=== PATIENT | female | born 1985 | race Two or more races ===

== ENCOUNTER 2023-08-13 01:49 | Emergency (ER) | payer MEDICAID, OTHER, SELFPAY ==
--- NOTE | ~2023-08-13 | CT_ITS ---
EXAMINATION: CT ABDOMEN AND PELVIS WITHOUT CONTRAST CLINICAL INFORMATION: Left flank pain with history of stone COMPARISON: None available. TECHNIQUE: Multidetector volumetric imaging was performed from the superior aspect of the liver through the pubic symphysis. Sagittal and coronal reformatted images were obtained on the technologist's workstation. This CT examination was performed using dose optimization techniques as appropriate, variously including the following: *Automated exposure control *Adjustment of mA and/or kV according to patient size (this includes techniques or standardized protocols for targeted exams where dose is matched to indication/reason for exam; i.e. extremities or head) *Use of iterative reconstruction technique DLP: 705 mGy-cm FINDINGS: LUNG BASES: The visualized lung bases are unremarkable. LIVER, GALLBLADDER, AND BILIARY TREE: The liver is normal in size, shape, and attenuation. No focal hepatic lesion or biliary ductal dilatation is identified on this noncontrast exam. Gallbladder appears contracted. PANCREAS: Unremarkable. SPLEEN: Unremarkable. ADRENAL GLANDS: Unremarkable. KIDNEYS AND URETERS: No hydronephrosis or obstructing calculus bilaterally. Mild stranding is noted adjacent to the mid left ureter. BLADDER: Unremarkable. GASTROINTESTINAL TRACT: Suture line is present along the stomach. No evidence of bowel obstruction or significant wall thickening. The appendix is unremarkable. No free fluid or free air is seen. ABDOMINAL WALL: No significant hernia is appreciated. LYMPH NODES: Normal. VASCULAR: Unremarkable. PELVIC VISCERA: Unremarkable. OSSEOUS STRUCTURES: Unremarkable. CT/CT abdomen pelvis wo IV con IMPRESSION: No hydronephrosis or obstructing calculus identified. Mild stranding adjacent to the mid left ureter, which could reflect sequelae of a recently passed stone versus ascending urinary tract infection.
[2023-08-13 01:54] VITALS: BP 115/77; PULSE 61; RESP 18; TEMP 36.8; O2SAT 97; BMI 36.2
[2023-08-13 02:22] LABS: MANUAL DIFF FLAG NO
[2023-08-13 02:24] LABS: Basophils Percent Auto 0.2 % (0-2); Eosinophils Absolute Auto 0.1 X10*3/uL (0.0-0.4); Eosinophils Percent Auto 1.3 % (0-4); Hematocrit 41.1 % (37.0-47.0); Hemoglobin 13.6 g/dl (12.0-16.0); Imm Gran Abs Auto 0.02 X10*3/uL (0.00-0.03); Imm Gran Pct Auto 0.2 % (0.0-0.4); Lymphocytes Absolute Auto 2.3 X10*3/uL (1.2-4.9); Lymphocytes Percent Auto 25.3 % (20-40); Mean Corpuscular HGB Conc 33.1 g/dl (31.0-35.0); Mean Corpuscular Hemoglobin 28.8 pg (27.0-33.0); Mean Corpuscular Volume 87.1 fL (80.0-98.0); Mean Platelet Volume 9.7 fL (9.4-12.3); Monocytes Absolute Auto 0.6 X10*3/uL (0.1-1.2); Neutrophils Absolute Auto 5.9 x10*3/uL (2.0-8.3); Platelet Count 223 X10*3/uL (160-400); Red Blood Count 4.72 X10*6/uL (4.20-5.50); Red Cell Distribution Width 14.2 % (11.0-16.0); White Blood Count 8.9 X10*3/uL (4.8-10.8)
[2023-08-13 02:40] LABS: Alanine Aminotransferase 13 U/L (0-31); Albumin Level 4.3 g/dL (3.5-5.0); Alkaline Phosphatase 81 U/L (39-117); Anion Gap 16 (12-20); Aspartate Amino Transferase 17 U/L (5-31); Bilirubin Total 0.1 mg/dL (0.0-1.0); Blood Urea Nitrogen 8 mg/dL (9-16); Calcium 9.4 mg/dL (8.4-10.2); Carbon Dioxide 20 mmol/L (22-29); Chloride 110 mmol/L (96-108); Creatinine Clr Calc Pharmacy 103.4; Estimated Glomerular Filt Rate > 60; Glucose Random 94 mg/dL (60-115); Potassium 3.6 mmol/L (3.3-5.1); Sodium 142 mmol/L (135-145)
[2023-08-13 02:42] LABS: Appearance Urine Cloudy; Color Urine Yellow; Glucose Urine UA Negative (Negative); Leukocyte Esterase Urine Large (3+) (Negative); Nitrite Urine Negative (Negative); Specific Gravity - Urine <= 1.005 (1.005-1.025); UMIC TRIGGER UACC YES; Urine Blood Moderate (2+) (Negative); Urine Ketones Negative (Negative); Urine Protein Trace mg/dL (Neg-Trace)
[2023-08-13 02:44] LABS: UPreg QC Valid YES; Urine Pregnancy NEGATIVE (NEGATIVE)
--- NOTE | 2023-08-13 03:19 | ED.ABDPAIN ---
HPI - Abdominal Pain General Chief Complaint: Abdominal Pain Stated Complaint: Abdominal/Back Pain Time Seen by Provider: 08/13/23 03:18 Source: patient Mode of arrival: ambulatory Limitations: no limitations History of Present Illness HPI narrative: Patient with history of kidney stone complaining of pain left flank radiating to left lower abdomen for last 24 hours with slight nausea no hematuria also complaining of lower abdominal pain for last few days denies any frequency hematuria Related Data Previous Rx's Medication Instructions Recorded cefuroxime axetil 250 mg tablet 250 mg PO BID 7 days #14 tabs 08/13/23 tramadol 50 mg tablet 50 mg PO Q6H PRN pain #20 tabs 08/13/23 Allergies Allergy/AdvReac Type Severity Reaction Status Date / Time No Known Allergies Allergy Verified 08/13/23 02:01 Review of Systems Review of Systems Yes all other systems are reviewed and are negative [facility] Past Medical History Medical History Kidney stone Social History Social History Smoked in Last 30 Days: No Use of substances other than those prescribed or required for medical reasons: No Advance Directives: No Advance Directives Information Provided: Yes Physical Exam ED Vital Signs: Vital Signs - 24 hr 08/13/23 01:54 08/13/23 03:52 08/13/23 04:25 Temperature 98.2 F 97.8 F Pulse Rate 61 79 Respiratory Rate 18 16 12 Blood Pressure 115/77 117/67 Pulse Oximetry 97 95 Oxygen Delivery Method Room Air Room Air BMI result Body Mass Index 36.2 Appearance: Alert. Oriented X3. In mild distress Eyes: PERRLA, No Nystagmus ENT: Pharynx normal. Oral Mucosa moist Neck: Normal inspection. Neck supple. CVS: Normal heart rate and rhythm. Pulses normal. Respiratory: No respiratory distress. Equal air entry bilateral, no wheezing/rales/rhonchi Abdomen: Soft , diffuse tenderness suprapubic and left lower quadrant. Bowel sounds are present, no mass palpable,L CVA tenderness Skin: Skin warm and dry. Normal skin color. Normal skin turgor. Extremities: No lower extremity edema. No calf tenderness Neuro: Oriented X 3. No motor deficit. 2067 Medical Decision Making Differential Diagnosis Differential Diagnoses: The differential diagnosis associated with the presentation includes UTI/renal colic/musculoskeletal pain Lab Data MDM Lab Attestation statement: I reviewed the patient's lab results. 08/13/23 02:06 08/13/23 02:06 Labs: Lab Results 08/13/23 Range/Units 02:06 WBC 8.9 (4.8-10.8) X10*3/uL RBC 4.72 (4.20-5.50) X10*6/uL Hgb 13.6 (12.0-16.0) g/dl Hct 41.1 (37.0-47.0) % MCV 87.1 (80.0-98.0) fL MCH 28.8 (27.0-33.0) pg MCHC 33.1 (31.0-35.0) g/dl RDW 14.2 (11.0-16.0) % Plt Count 223 (160-400) X10*3/uL MPV 9.7 (9.4-12.3) fL Immature Gran % (Auto) 0.2 (0.0-0.4) % Neut % (Auto) 66.0 (45-73) % Lymph % (Auto) 25.3 (20-40) % [place] % (Auto) 7.0 (2-11) % Eos % (Auto) 1.3 (0-4) % Baso % (Auto) 0.2 (0-2) % Lymph # (Auto) 2.3 (1.2-4.9) X10*3/uL [place] # (Auto) 0.6 (0.1-1.2) X10*3/uL Eos # (Auto) 0.1 (0.0-0.4) X10*3/uL Baso # (Auto) 0.0 (0.0-0.2) X10*3/uL Abs Immat Gran (auto) 0.02 (0.00-0.03) X10*3/uL Absolute Neuts (auto) 5.9 (2.0-8.3) x10*3/uL Absolute Nucleated RBC 0.000 (0.0-0.012) X10*3/uL Nucleated RBC % (auto) 0.0 (0.0-0.2) /100WBC Sodium 142 (135-145) mmol/L Potassium 3.6 (3.3-5.1) mmol/L Chloride 110 H (96-108) mmol/L Carbon Dioxide 20 L (22-29) mmol/L Anion Gap 16 (12-20) BUN 8 L (9-16) mg/dL Creatinine 0.82 (0.5-1.4) mg/dL Estim Creat Clear Calc 103.4 Estimated GFR > 60 Random Glucose 94 (60-115) mg/dL Calcium 9.4 (8.4-10.2) mg/dL Total Bilirubin 0.1 (0.0-1.0) mg/dL AST 17 (5-31) U/L ALT 13 (0-31) U/L Alkaline Phosphatase 81 (39-117) U/L Total Protein 8.0 (6.5-8.0) g/dL Albumin 4.3 (3.5-5.0) g/dL Urine Color Yellow Urine Appearance Cloudy Urine pH 6.0 (5.0-9.0) Ur Specific [place] <= 1.005 (1.005-1.025) Urine Protein Trace (Neg-Trace) mg/dL Urine Glucose (UA) Negative (Negative) mg/dL Urine Ketones Negative (Negative) mg/dL Urine Blood Moderate (2+) H (Negative) Urine Nitrite Negative (Negative) Ur Leukocyte Esterase Large (3+) H (Negative) Urine RBC 0-2 (0-2) /HPF Urine WBC >50 H (0-5) /HPF Ur Squamous Epith Cells 0-2 (0-2) /HPF Urine Bacteria 1+ (None Seen) Hyaline Casts 0-2 (0-2) /LPF Urine Test NEGATIVE (NEGATIVE) Radiology Impression Discussion of test interpretation with radiology: I have reviewed the radiologist's reading. Medications Administered Discontinued Medications Generic Name Dose Route Start Last Admin Trade Name Freq PRN Reason Stop Dose Admin Cefuroxime Axetil 500 mg 08/13/23 06:03 08/13/23 06:31 Cefuroxime Axetil 500 Mg Tablet PO 08/13/23 06:04 500 mg ONCE ONE Administration Sodium Chloride 1,000 mls @ 999 mls/hr 08/13/23 03:35 08/13/23 05:25 Ns IV 08/13/23 04:35 Infused .Q1H1M ONE Infusion Ketorolac Tromethamine 30 mg 08/13/23 03:35 08/13/23 04:22 Ketorolac Tromethamine 30 Mg/Ml Vial IVPUSH 08/13/23 03:36 30 mg ONCE ONE Administration Discharge Plan Discharge Clinical Impression: Renal calculi, UTI (urinary tract infection) Patient Disposition: Home, Self-Care Instructions: Kidney Stones (ED), Urinary Tract Infection in Women (ED) Additional Instructions: Drink plenty of fluids Likely you have passed a kidney stone, also urine showing some infection Take antibiotic as prescribed Pain meds as prescribed Follow-up with your PCP as needed Beber mucho l?quido Probablemente hayas expulsado un c?lculo renal, tambi?n la orina muestra alguna infecci?n. [place] el antibi?mackenzie seg?n lo prescrito Medicamentos para el dolor seg?n lo prescrito Rusty un seguimiento con jamison PCP seg?n sea necesario Prescriptions: New cefuroxime axetil 250 mg tablet 250 mg PO BID 7 Days Qty: 14 0RF tramadol 50 mg tablet 50 mg PO Q6H PRN (Reason: pain) Qty: 20 0RF Print Language: Chinese
[2023-08-13 03:48] LABS: Bacteria Urine 1+ (None Seen); Hyaline Casts Urine 0-2 /LPF (0-2); RBC Urine 0-2 /HPF (0-2); Squamous Epithelial Cell Urine 0-2 /HPF (0-2); UACC Culture Trigger YES; WBC Urine >50 /HPF (0-5)
[2023-08-13 03:52] VITALS: BP 117/67; PULSE 79; RESP 16; TEMP 36.6; O2SAT 95
[2023-08-13] MEDS: Ketorolac Tromethamine 30 MG/ML VIAL IVPUSH (04:22)
[2023-08-13] MEDS: 0.9 % Sodium Chloride 1,000 ML 999 ML IV (04:24)
[2023-08-13 04:25] VITALS: RESP 12
--- NOTE | 2023-08-13 04:29 | PC.NURSE ---
Pt ca&ox4, no signs of distress. Pts spouse at bedside Pt reporting 10/10 left flank pain and abdm pain Pt medicated per mar. Plan of care ongoing.
== END 2023-08-13 07:08 | disposition home or self-care (01) ==
PROVIDERS: Emergency Provider Internal Medicine
DX: N20.0 Calculus of kidney (principal); N39.0 Urinary tract infection, site not specified; B96.20 Unspecified Escherichia coli [E. coli] as the cause of diseases classified elsewhere; R10.9 Unspecified abdominal pain
CPT/HCPCS: 36415; 74176; 80053; 81001; 81025; 85025; 87086; 87088; 87186; 96361; 96374; 99284; 99285; J1885

== ENCOUNTER 2024-07-17 10:09 | Emergency (ER) | payer MEDICAID, OTHER, SELFPAY ==
--- NOTE | ~2024-07-17 | CT_ITS ---
EXAMINATION: CT ABDOMEN AND PELVIS WITHOUT CONTRAST CLINICAL INFORMATION: Lower abdominal pain COMPARISON: CT abdomen and pelvis 08/13/2023 TECHNIQUE: Multidetector volumetric imaging was performed from the superior aspect of the liver through the pubic symphysis. Sagittal and coronal reformatted images were obtained on the technologist's workstation. This CT examination was performed using dose optimization techniques as appropriate, variously including the following: *Automated exposure control *Adjustment of mA and/or kV according to patient size (this includes techniques or standardized protocols for targeted exams where dose is matched to indication/reason for exam; i.e. extremities or head) *Use of iterative reconstruction technique DLP: 683 mGy-cm FINDINGS: LUNG BASES: The visualized lung bases are unremarkable. LIVER, GALLBLADDER, AND BILIARY TREE: The liver is enlarged measuring over 21 cm in cephalocaudad dimension. Attenuation is normal. No focal hepatic lesion or biliary ductal dilatation is present. The gallbladder is unremarkable with no evidence of radiopaque gallstones, gallbladder wall thickening, or obvious pericholecystic inflammatory changes. PANCREAS: Unremarkable. SPLEEN: Unremarkable. ADRENAL GLANDS: Unremarkable. KIDNEYS AND URETERS: The kidneys are normal in size, shape, and attenuation. No hydronephrosis, hydroureter, or calculi seen. No perinephric stranding. BLADDER: Unremarkable. GASTROINTESTINAL TRACT: Status post gastric sleeve. The small and large bowel are unremarkable. The appendix is unremarkable. ABDOMINAL WALL: No significant hernia is appreciated. LYMPH NODES: Normal. VASCULAR: Unremarkable. PELVIC VISCERA: Unremarkable. OSSEOUS STRUCTURES: Unremarkable. CT/CT abdomen pelvis wo IV con IMPRESSION: A cause for the patient's lower abdominal pain has not been found. Incidental note made of hepatomegaly and gastric sleeve. Fleischner guidelines were followed. Electronically signed by: Roland Eddy MD 07/17/2024 01:14 PM EDT
[2024-07-17 10:15] VITALS: BP 116/41; PULSE 65; RESP 18; TEMP 36.4; O2SAT 99; BMI 32.5
[2024-07-17 10:35] LABS: MANUAL DIFF FLAG NO; UPreg QC Valid YES
[2024-07-17 10:37] LABS: Appearance Urine Cloudy; Color Urine Yellow; Glucose Urine UA Negative (Negative); Leukocyte Esterase Urine Moderate (2+) (Negative); Nitrite Urine Negative (Negative); Specific Gravity - Urine 1.025 (1.005-1.025); UMIC TRIGGER UACC YES; Urine Blood Small (1+) (Negative); Urine Ketones Negative (Negative); Urine Protein 30 (1+) mg/dL (Neg-Trace)
[2024-07-17 10:38] LABS: Urine Pregnancy NEGATIVE (NEGATIVE)
[2024-07-17 10:41] LABS: Basophils Percent Auto 0.2 % (0-2); Eosinophils Absolute Auto 0.1 X10*3/uL (0.0-0.4); Eosinophils Percent Auto 1.5 % (0-4); Hematocrit 37.5 % (37.0-47.0); Hemoglobin 11.9 g/dl (12.0-16.0); Imm Gran Abs Auto 0.01 X10*3/uL (0.00-0.03); Imm Gran Pct Auto 0.2 % (0.0-0.4); Lymphocytes Absolute Auto 1.5 X10*3/uL (1.2-4.9); Lymphocytes Percent Auto 28.9 % (20-40); Mean Corpuscular HGB Conc 31.7 g/dl (31.0-35.0); Mean Platelet Volume 9.9 fL (9.4-12.3); Monocytes Absolute Auto 0.3 X10*3/uL (0.1-1.2); Monocytes Percent Auto 4.7 % (2-11); Neutrophils Absolute Auto 3.4 x10*3/uL (2.0-8.3); Neutrophils Percent Auto 64.5 % (45-73); Platelet Count 229 X10*3/uL (160-400); Red Blood Count 4.41 X10*6/uL (4.20-5.50); Red Cell Distribution Width 15.9 % (11.0-16.0); White Blood Count 5.3 X10*3/uL (4.8-10.8)
[2024-07-17 10:42] LABS: Bacteria Urine 4+ (None Seen); Hyaline Casts Urine 0-2 /LPF (0-2); Squamous Epithelial Cell Urine 0-2 /HPF (0-2); UACC Culture Trigger YES; WBC Urine >50 /HPF (0-5)
[2024-07-17 10:59] LABS: Alanine Aminotransferase 16 U/L (0-31); Alkaline Phosphatase 68 U/L (39-117); Anion Gap 11 (12-20); Aspartate Amino Transferase 16 U/L (5-31); Bilirubin Total 0.3 mg/dL (0.0-1.0); Blood Urea Nitrogen 14 mg/dL (9-16); Carbon Dioxide 25 mmol/L (22-29); Chloride 109 mmol/L (96-108); Creatinine Clr Calc Pharmacy 103.2; Estimated Glomerular Filt Rate > 60; Glucose Random 97 mg/dL (60-115); Potassium 3.7 mmol/L (3.3-5.1); Sodium 141 mmol/L (135-145); Total Protein 7.2 g/dL (6.5-8.0)
[2024-07-17 12:07] LABS: Lipase 23 U/L (8-78)
--- NOTE | 2024-07-17 12:20 | ED_ITS ---
HPI - Female Genitourinary General Chief complaint: Urogenital-Female Stated complaint: Chills, Abd pain traveling to legs Time Seen by Provider: 07/17/24 12:14 Source: patient Mode of arrival: ambulatory Limitations: no limitations History of Present Illness ED Provider: Dr. Verito Lobato HPI Narrative: Patient comes to the emergency room complaining of suprapubic pressure and discomfort with urination and frequency. Patient states her symptoms started approximately 4 hours ago. Patient denies fever chills, denies flank pain. Denies nausea vomiting or diarrhea Related Data Previous Rx's ?Medication ?Instructions ?Recorded cefuroxime axetil 250 mg tablet 250 mg PO BID 7 days #14 tabs 08/13/23 tramadol 50 mg tablet 50 mg PO Q6H PRN pain #20 tabs 08/13/23 cefuroxime axetil 250 mg tablet 250 mg PO BID #14 tabs 07/17/24 phenazopyridine 100 mg tablet 100 mg PO TID 6 doses #6 tabs 07/17/24 Allergies Allergy/AdvReac Type Severity Reaction Status Date / Time No Known Allergies Allergy Verified 07/17/24 10:18 Review of Systems 2 Review of Systems: Constitutional : No Weight loss, No Fever, No Chills, No Night Sweats, No Fatigue, No Malaise ENT/Mouth : No Hearing loss, No Ear Pain, No Nasal Congestion, No Sinus Pain, No Hoarseness, No sore throat, No Rhinorrhea, No Swallowing Difficulty Eyes: No Eye Pain, No Swelling, No Redness, No Foreign Body, No Discharge, No Vision Changes Cardiovascular : No Chest Pain, No SOB, No Dyspnea on Exertion, No Orthopnea, No Edema, No Palpitations Respiratory : No Cough, No Sputum, No Wheezing, No Smoke Exposure, No Dyspnea Gastrointestinal : No Nausea, No Vomiting, No Diarrhea, No Constipation, No abdominal Pain, No Hematochezia, No Melena Genitourinary : no irregular bleeding, complaining of dysuria, frequency, no hematuria, no flank pain Musculoskeletal : No joint pain, No Myalgias, No Joint Swelling Skin : No Skin Lesions, No rash Neuro : No Weakness, No Numbness, No Paresthesias, No Loss of Consciousness, No Dizziness, No Headache Psych : No Anxiety/Panic, No Depression, No SI/HI/AH/VH, No Social Issues, Heme/Lymph: No Bruising, No Bleeding,No Lymphadenopathy Endocrine : No Polyuria, No Polydipsia, No Temperature Intolerance PMFSH Past Medical History Medical History Kidney stone Physical Exam 2 Vital Signs: Vital Signs: Last Vital Signs Temp 98.3 F 07/17/24 12:50 Pulse 53 07/17/24 12:50 Resp 12 07/17/24 12:50 BP 107/61 07/17/24 12:50 Pulse Ox 100 07/17/24 12:50 O2 Del Method Room Air 07/17/24 12:50 BMI result Body Mass Index 32.5 Const: Other: Appearance: Alert. Oriented X3. No acute distress. Well-appearing Eyes: Pupils equal, round and reactive to light. ENT: Pharynx normal. Neck: Normal inspection. Neck supple. No lymph nodes noted. No crepitus CVS: Normal heart rate and rhythm. Pulses normal. Normal S1 and S2 Respiratory: No respiratory distress. Breath sounds normal. No Wheezing. No rales Abdomen: Soft and nontender. No rigidity. No distention. No CVA tenderness Skin: Skin warm and dry. Normal skin color. Normal skin turgor. Extremities: No lower extremity edema. No Lacerations. No Rash Neuro: Oriented X 3. No motor deficit. No sensory deficit. Moving all extremities. No slurred speech. CN 2 through 12 grossly intact Psych: calm, cooperative, normal affect Medications Administered Discontinued Medications Generic Name Dose Route Start Last Admin Trade Name Freq PRN Reason Stop Dose Admin Cefuroxime Axetil 250 mg 07/17/24 12:16 07/17/24 12:26 Cefuroxime Axetil 250 Mg Tablet PO 07/17/24 12:17 250 mg ONCE ONE Administration Phenazopyridine HCl 100 mg 07/17/24 12:16 07/17/24 12:26 Phenazopyridine Hcl 100 Mg Tablet PO 07/17/24 12:17 100 mg ONCE ONE Administration Medical Decision Making Medical Decision Making [facility] Narrative: Patient's physical exam benign, no CVA tenderness -my interpretation of labs: Normal hematology and chemistry, lipase and LFTs, patient's urinalysis positive for UTI = patient given the 1st dose of cefuroxime in the ED and phenazopyridine -sepsis/pyelonephritis is not suspected. -patient has no flank pain, no significant discomfort other than suprapubic pressure. Kidney stone in not suspected Differential Diagnosis Differential Diagnoses: The differential diagnosis associated with the presentation includes (UTI, pyelonephritis, kidney stone) Admission/Observation Consideration of admission/observation: Escalation of care including admission/observation considered (Given patient's symptoms, observation was considered) Lab Data MDM Lab Attestation statement: I reviewed the patient's lab results. 07/17/24 10:29 07/17/24 10:29 Labs: Lab Results 07/17/24 Range/Units 10:29 WBC 5.3 (4.8-10.8) X10*3/uL RBC 4.41 (4.20-5.50) X10*6/uL Hgb 11.9 L (12.0-16.0) g/dl Hct 37.5 (37.0-47.0) % MCV 85.0 (80.0-98.0) fL MCH 27.0 (27.0-33.0) pg MCHC 31.7 (31.0-35.0) g/dl RDW 15.9 (11.0-16.0) % Plt Count 229 (160-400) X10*3/uL MPV 9.9 (9.4-12.3) fL Immature Gran % (Auto) 0.2 (0.0-0.4) % Neut % (Auto) 64.5 (45-73) % Lymph % (Auto) 28.9 (20-40) % [place] % (Auto) 4.7 (2-11) % Eos % (Auto) 1.5 (0-4) % Baso % (Auto) 0.2 (0-2) % Lymph # (Auto) 1.5 (1.2-4.9) X10*3/uL [place] # (Auto) 0.3 (0.1-1.2) X10*3/uL Eos # (Auto) 0.1 (0.0-0.4) X10*3/uL Baso # (Auto) 0.0 (0.0-0.2) X10*3/uL Abs Immat Gran (auto) 0.01 (0.00-0.03) X10*3/uL Absolute Neuts (auto) 3.4 (2.0-8.3) x10*3/uL Absolute Nucleated RBC 0.000 (0.0-0.012) X10*3/uL Nucleated RBC % (auto) 0.0 (0.0-0.2) /100WBC Sodium 141 (135-145) mmol/L Potassium 3.7 (3.3-5.1) mmol/L Chloride 109 H (96-108) mmol/L Carbon Dioxide 25 (22-29) mmol/L Anion Gap 11 L (12-20) BUN 14 (9-16) mg/dL Creatinine 0.78 (0.5-1.4) mg/dL Estim Creat Clear Calc 103.2 Estimated GFR > 60 Random Glucose 97 (60-115) mg/dL Calcium 9.0 (8.4-10.2) mg/dL Total Bilirubin 0.3 (0.0-1.0) mg/dL AST 16 (5-31) U/L ALT 16 (0-31) U/L Alkaline Phosphatase 68 (39-117) U/L Total Protein 7.2 (6.5-8.0) g/dL Albumin 4.0 (3.5-5.0) g/dL Lipase 23 (8-78) U/L Urine Color Yellow Urine Appearance Cloudy Urine pH 7.0 (5.0-9.0) Ur Specific [place] 1.025 (1.005-1.025) Urine Protein 30 (1+) H (Neg-Trace) mg/dL Urine Glucose (UA) Negative (Negative) mg/dL Urine Ketones Negative (Negative) mg/dL Urine Blood Small (1+) H (Negative) Urine Nitrite Negative (Negative) Ur Leukocyte Esterase Moderate (2+) H (Negative) Urine RBC 6-10 H (0-2) /HPF Urine WBC >50 H (0-5) /HPF Ur Squamous Epith Cells 0-2 (0-2) /HPF Urine Bacteria 4+ (None Seen) Hyaline Casts 0-2 (0-2) /LPF Urine Test NEGATIVE (NEGATIVE) Independent Interpretation I performed an independent interpretation of an: CT Scan Radiology Impression Discussion of test interpretation with radiology: I have reviewed the radiologist's reading. Radiologist Impression: LIVER, GALLBLADDER, AND BILIARY TREE: The liver is enlarged measuring over 21 cm in cephalocaudad dimension. Attenuation is normal. No focal hepatic lesion or biliary ductal dilatation is present. The gallbladder is unremarkable with no evidence of radiopaque gallstones, gallbladder wall thickening, or obvious pericholecystic inflammatory changes. PANCREAS: Unremarkable. SPLEEN: Unremarkable. ADRENAL GLANDS: Unremarkable. KIDNEYS AND URETERS: The kidneys are normal in size, shape, and attenuation. No hydronephrosis, hydroureter, or calculi seen. No perinephric stranding. BLADDER: Unremarkable. GASTROINTESTINAL TRACT: Status post gastric sleeve. The small and large bowel are unremarkable. The appendix is unremarkable. ABDOMINAL WALL: No significant hernia is appreciated. LYMPH NODES: Normal. VASCULAR: Unremarkable. PELVIC VISCERA: Unremarkable. OSSEOUS STRUCTURES: Unremarkable. CT/CT abdomen pelvis wo IV con IMPRESSION: A cause for the patient's lower abdominal pain has not been found. Incidental note made of hepatomegaly and gastric sleeve. Fleischner guidelines were followed Critical Care Time Critical Care Time Critical Care Time: Yes Total Critical Care Time: 30 Attestation: I have personally provided critical care time. Time includes review of lab data, radiology results, discussion with consultants, and monitoring for potential decompensation. Intervention performed as documented. Discharge Plan Discharge Clinical Impression: Urinary tract infection Patient Disposition: Home, Self-Care Instructions: Urinary Tract Infection in Women (ED) Additional Instructions: Please follow-up with your primary care physician tomorrow. If you have any worsening or new symptoms, please return to the emergency room or call 911 Prescriptions: New cefuroxime axetil 250 mg tablet 250 mg PO BID Qty: 14 0RF phenazopyridine 100 mg tablet 100 mg PO TID Qty: 6 0RF No Action cefuroxime axetil 250 mg tablet 250 mg PO BID 7 Days Qty: 14 0RF tramadol 50 mg tablet 50 mg PO Q6H PRN (Reason: pain) Qty: 20 0RF Print Language: Kosovan
[2024-07-17] MEDS: Phenazopyridine HCL 100 MG TABLET PO (12:26)
[2024-07-17] MEDS: cefuroxime axetiL 250 MG TABLET PO (12:26)
--- NOTE | 2024-07-17 12:27 | PC.NURSE ---
abx administered per provider order.
[2024-07-17 12:50] VITALS: BP 107/61; PULSE 53; RESP 12; TEMP 36.8; O2SAT 100
[2024-07-17 13:56] VITALS: BP 107/61; PULSE 53; RESP 12; TEMP 36.8; O2SAT 100
== END 2024-07-17 13:57 | disposition home or self-care (01) ==
PROVIDERS: Physician Assistant; Emergency Provider Emergency Medicine
DX: N39.0 Urinary tract infection, site not specified (principal); R30.0 Dysuria; R10.9 Unspecified abdominal pain; R35.0 Frequency of micturition; Z79.899 Other long term (current) drug therapy
CPT/HCPCS: 36415; 74176; 80053; 81001; 81025; 83690; 85025; 87086; 87088; 87186; 99284

== ENCOUNTER 2024-09-26 17:30 | Emergency (ER) | payer BC, SELFPAY ==
--- NOTE | ~2024-09-26 | XR_ITS ---
EXAMINATION: XR lumbar spine 2-3V CLINICAL INFORMATION: R low back pain after heavy lifting COMPARISON: None TECHNIQUE: 3 views of the lumbar spine FINDINGS: 5 nonrib-bearing lumbar-type vertebral bodies. Vertebral body heights are maintained. Alignment is maintained. Disc space heights are maintained. Paravertebral soft tissues are unremarkable. XR/XR lumbar spine 2-3V IMPRESSION: Unremarkable examination. Electronically signed by: Leyla Jewell MD 09/26/2024 07:51 PM [facility]
[2024-09-26 17:42] VITALS: BP 113/68; PULSE 74; RESP 20; TEMP 36.4; O2SAT 98; BMI 28.3
--- NOTE | 2024-09-26 17:45 | ED.BACK ---
HPI - Back Pain/Injury General Chief Complaint: Back Pain/Injury Stated Complaint: Back Pain Related Data Previous Rx's ?Medication ?Instructions ?Recorded cefuroxime axetil 250 mg tablet 250 mg PO BID 7 days #14 tabs 08/13/23 tramadol 50 mg tablet 50 mg PO Q6H PRN pain #20 tabs 08/13/23 cefuroxime axetil 250 mg tablet 250 mg PO BID #14 tabs 07/17/24 phenazopyridine 100 mg tablet 100 mg PO TID 6 doses #6 tabs 07/17/24 nitrofurantoin macrocrystal 100 mg 100 mg PO BID 7 days #14 caps 07/22/24 capsule Allergies Allergy/AdvReac Type Severity Reaction Status Date / Time No Known Allergies Allergy Verified 09/26/24 17:44 [facility] Past Medical History Medical History Kidney stone Physical Exam Vital Signs: Vital Signs: Last Vital Signs Temp 97.5 F 09/26/24 17:42 Pulse 74 09/26/24 17:42 Resp 20 09/26/24 17:42 BP 113/68 09/26/24 17:42 Pulse Ox 98 09/26/24 17:42 O2 Del Method Room Air 09/26/24 17:42 BMI result Body Mass Index 28.3 Course Course Course Narrative: This is a Rapid Medical Examination (RME) performed by Jia Lock PA-C in triage. Full HPI, ROS, assessment and treatment plan per primary provider in the Main ED. 39 yo female here for eval of right low back pain, radiating down RLE, which started after lifting a heavy object yesterday. Plan: xr Discharge Plan Discharge Prescriptions: No Action cefuroxime axetil 250 mg tablet 250 mg PO BID Qty: 14 0RF phenazopyridine 100 mg tablet 100 mg PO TID Qty: 6 0RF nitrofurantoin macrocrystal 100 mg capsule 100 mg PO BID 7 Days Qty: 14 0RF Rx Instructions: must administer with a meal/food cefuroxime axetil 250 mg tablet 250 mg PO BID 7 Days Qty: 14 0RF tramadol 50 mg tablet 50 mg PO Q6H PRN (Reason: pain) Qty: 20 0RF Print Language: Chinese
--- NOTE | 2024-09-26 23:35 | ED_ITS ---
HPI - Back Pain/Injury General Chief Complaint: Back Pain/Injury Stated Complaint: Back Pain Time Seen by Provider: 09/26/24 23:12 History of Present Illness HPI Narrative: Patient is 39 years old presents today with having lower back pain. It goes down to the gluteal area. Patient's claims she lifted something heavy yesterday subsequently the pain got worse. There is no bowel urinary incontinence. There is no focal weakness. Patient is from home. Related Data Previous Rx's ?Medication ?Instructions ?Recorded cefuroxime axetil 250 mg tablet 250 mg PO BID 7 days #14 tabs 08/13/23 tramadol 50 mg tablet 50 mg PO Q6H PRN pain #20 tabs 08/13/23 cefuroxime axetil 250 mg tablet 250 mg PO BID #14 tabs 07/17/24 phenazopyridine 100 mg tablet 100 mg PO TID 6 doses #6 tabs 07/17/24 nitrofurantoin macrocrystal 100 mg 100 mg PO BID 7 days #14 caps 07/22/24 capsule ibuprofen 400 mg tablet 400 mg PO Q6H PRN pain #20 tabs 09/26/24 Allergies Allergy/AdvReac Type Severity Reaction Status Date / Time No Known Allergies Allergy Verified 09/26/24 17:44 Review of Systems Review of Systems: No fever no chills no chest pain or shortness of breath Yes all other systems are reviewed and are negative [facility] Past Medical History Attestation statement: The following information was validated with the patient. Medical History Kidney stone Physical Exam Vital Signs: Vital Signs: Last Vital Signs Temp 97.5 F 09/26/24 17:42 Pulse 74 09/26/24 17:42 Resp 20 09/26/24 17:42 BP 113/68 09/26/24 17:42 Pulse Ox 98 09/26/24 17:42 O2 Del Method Room Air 09/26/24 17:42 BMI result Body Mass Index 28.3 Appearance: Alert. Oriented X3. No acute distress. Eyes: Pupils equal, round and reactive to light. ENT: Pharynx normal. Neck: Normal inspection. Neck supple. No lymph nodes noted. No crepitus CVS: Normal heart rate and rhythm. Pulses normal. Normal S1 and S2 Respiratory: No respiratory distress. Breath sounds normal. No Wheezing. No rales Abdomen: Soft and nontender. No rigidity. No distention. good BS x4 Skin: Skin warm and dry. Normal skin color. Normal skin turgor. Lower back there is paraspinal muscle tenderness on the right side. There is good sensation in bilateral lower extremity. Ambulates with a normal gait. Extremities: No lower extremity edema. Neurovascular intact to all extremities. No Lacerations. No Rash Neuro: Oriented X 3. No motor deficit. No sensory deficit. Moving all extermities. No slurred speech Medical Decision Making Medical Decision Making [facility] Narrative: X-ray of the lower back was done at triage. There were grossly negative. Patient in no distress. There is no bowel urinary incontinence to suggest patient's cauda equinus syndrome question sciatica. Patient has no fever no chills no history of IV drug use. Currently in stable condition. Will ask patient use Motrin Differential Diagnosis Differential Diagnoses: The differential diagnosis associated with the presentation includes Sciatica Admission/Observation Consideration of admission/observation: Escalation of care including admission/observation considered Lab Data [facility] Lab Attestation statement: I reviewed the patient's lab results. Independent Interpretation I performed an independent interpretation of an: Plain X-Ray (X-ray of the lower back was negative) Radiology Impression Discussion of test interpretation with radiology: I have reviewed the radiologist's reading. Chronic Conditions Lower back pain Social Determinants Patient?s care significantly limited by Social Determinants of Health including: Problems related to primary support group Discharge Plan Discharge Clinical Impression: Sciatica Patient Disposition: Home, Self-Care Instructions: Sciatica (ED) Prescriptions: New ibuprofen 400 mg tablet 400 mg PO Q6H PRN (Reason: pain) Qty: 20 0RF No Action cefuroxime axetil 250 mg tablet 250 mg PO BID Qty: 14 0RF phenazopyridine 100 mg tablet 100 mg PO TID Qty: 6 0RF nitrofurantoin macrocrystal 100 mg capsule 100 mg PO BID 7 Days Qty: 14 0RF Rx Instructions: must administer with a meal/food cefuroxime axetil 250 mg tablet 250 mg PO BID 7 Days Qty: 14 0RF tramadol 50 mg tablet 50 mg PO Q6H PRN (Reason: pain) Qty: 20 0RF Referrals: Physician,None [Primary Care Provider] - 09/28/24 Print Language: Setswana
[2024-09-26 23:52] VITALS: BP 113/68; PULSE 74; RESP 20; TEMP 36.4; O2SAT 98
== END 2024-09-26 23:54 | disposition home or self-care (01) ==
PROVIDERS: Emergency Provider Emergency Medicine Emergency Medical Services
DX: M54.41 Lumbago with sciatica, right side (principal)
CPT/HCPCS: 72100; 99282; 99283

== ENCOUNTER 2025-03-04 20:15 | Emergency (ER) | payer BC, SELFPAY ==
--- NOTE | ~2025-03-04 | XR_ITS ---
CLINICAL HISTORY: cp sob 1 view chest x-ray Comparison: None Findings: No consolidation, pneumothorax, or pleural effusion. Heart size is normal. No acute fracture. IMPRESSION: No consolidation. This document has been electronically signed by: Jonathan Garcia MD on 03/04/2025 21:13:38
[2025-03-04 20:18] VITALS: BP 123/76; PULSE 68; RESP 18; TEMP 36.5; O2SAT 100; BMI 33.3
--- NOTE | 2025-03-04 20:23 | ECG_ITS ---
Test Reason : cp Blood Pressure : */* mmHG Vent. Rate : 67 BPM Atrial Rate : 67 BPM P-R Int : 158 ms QRS Dur : 80 ms QT Int : 412 ms P-R-T Axes : 64 8 25 degrees QTcB Int : 435 ms Sinus rhythm with marked sinus arrhythmia Otherwise normal ECG No previous ECGs available Referred By: Generic ED Physician Electronically Signed By: MURRAY CAROLINA MD
[2025-03-04 20:39] LABS: MANUAL DIFF FLAG NO
[2025-03-04 20:41] LABS: Basophils Percent Auto 0.2 % (0-2); Eosinophils Absolute Auto 0.1 X10*3/uL (0.0-0.4); Eosinophils Percent Auto 1.8 % (0-4); Hematocrit 34.8 % (37.0-47.0); Hemoglobin 11.1 g/dl (12.0-16.0); Imm Gran Abs Auto 0.01 X10*3/uL (0.00-0.03); Imm Gran Pct Auto 0.2 % (0.0-0.4); Lymphocytes Absolute Auto 2.1 X10*3/uL (1.2-4.9); Lymphocytes Percent Auto 35.1 % (20-40); Mean Corpuscular HGB Conc 31.9 g/dl (31.0-35.0); Mean Corpuscular Hemoglobin 26.1 pg (27.0-33.0); Mean Corpuscular Volume 81.9 fL (80.0-98.0); Mean Platelet Volume 9.7 fL (9.4-12.3); Monocytes Absolute Auto 0.5 X10*3/uL (0.1-1.2); Monocytes Percent Auto 7.7 % (2-11); Neutrophils Absolute Auto 3.3 x10*3/uL (2.0-8.3); Platelet Count 231 X10*3/uL (160-400); Red Blood Count 4.25 X10*6/uL (4.20-5.50); Red Cell Distribution Width 15.4 % (11.0-16.0); White Blood Count 6.1 X10*3/uL (4.8-10.8)
[2025-03-04 20:57] LABS: Alanine Aminotransferase 30 U/L (0-31); Albumin Level 3.9 g/dL (3.5-5.0); Alkaline Phosphatase 80 U/L (39-117); Anion Gap 12 (12-20); Aspartate Amino Transferase 28 U/L (5-31); Bilirubin Total 0.2 mg/dL (0.0-1.0); Blood Urea Nitrogen 14 mg/dL (9-16); Calcium 8.9 mg/dL (8.4-10.2); Carbon Dioxide 25 mmol/L (22-29); Chloride 108 mmol/L (96-108); Creatinine Clr Calc Pharmacy 104.2; Estimated Glomerular Filt Rate > 60; Glucose Random 107 mg/dL (60-115); Potassium 4.2 mmol/L (3.3-5.1); Sodium 141 mmol/L (135-145); Total Protein 6.9 g/dL (6.5-8.0)
[2025-03-04 21:02] LABS: Troponin-I High Sensitivity 2.9 ng/L (<3.5-17.0)
--- NOTE | 2025-03-05 01:38 | MHC.EDTECH ---
pt called for repeat labs, no answer.
--- OUTSIDE RECORDS SUMMARY | 2025-03-05 02:28 | XMS_ITS | Clinical Summary ---
Author Organization [employer] Address [address] [place] [address] Care Team Providers Care Creative Services Specialist Name Role Phone Unavailable Primary Care Provider Unavailabl e Encounters Date Type Department Care Team Description 02/27/2025 Patient Outreach [facility] [address] [place] [address] Jessica Costello MD Pre-visit Planning (SDOH screening completed on 02/12/25) 02/19/2025 Telephone [facility] [address] [place] [address] Jessica Costello MD Credit 02/19/2025 Travel 02/18/2025 Telephone [facility] [address] [place] [address] Jessica Costello MD Chart Prep 02/12/2025 Patient Outreach [facility] [address] [place] [phone] Jessica Costello MD Pre-visit Planning (SDOH screening negative and Tobacco screening negative) 12/12/2024 Telephone [facility] [address] [place] [phone] Giovany Joyner MD New patient appt. from Last 3 Months Immunizations Name Administration Dates Next Due Influenza, Injectable, MDCK, preservative free 0 12/02/2024 Tdap 12/02/2024 Social History Tobacco Use Types Packs/Day Years Used Date Smoking Tobacco: Never Assessed Housing Stability Answer Date Recorded What is your housing situation today? I have kai burger 02/12/[address] you li ve. Do you have problems with any of the following? None of the above 02/12/2025 Food Insecurity Answer Date Recorded Within the past 12 months, y ou worried that your food would run out before you got money to buy more: Never True 02/12/2025 Within the past 12 months,th e food you bought just didn't last and you didn't have enough money to get more: Never True Transportation Answer Date Recorded In the past 12 months, has l ack of transportation kept you from medical appts, meetings, work or from getting things needed for daily living? No 02/12/2025 Utilities Answer Date Recorded In the past 12 months, has t he electric, gas, oil or water company threatened to shut off services in your home? No 02/12/2025 Internet Access Answer Date Recorded Internet Access Q1 Yes 02/12/2025 Internet Access Q2 Not on file 02/12/2025 Comments Unknown Sex and Gender Information Value Date Recorded Sex Assigned at Female 12/03/2024 2:14 PM EST Legal Sex Female 11:48 AM EDT Gender Identity Female 12/03/2024 2:14 PM EST Sexual Orientation Straight 12/03/2024 2: 14 PM EST Plan of Treatment Upcoming Encounters Date Type Department Care Team (Late st Contact Info) Description 03/07/2025 8:30 AM EDT Office Visit [facility] [address] [place] [address] Jessica Costello MD [address] [place] [address] Health Maintenance Due Date Last Done Comments Depression Screening 1984 HIV Screening 1984 Alcohol/Substance Use Screening 1996 Tobacco Screening 1996 Family Planning (PISQ) 01/25/1999 Hepatitis C Screening 01/25/2002 Hepatitis B Vaccines (1 of 3 - 19+ 3-dose series) 01/25/2003 Pap Smear 01/25/2005 Cervical Cancer Screening 01/25/2014 HPV/Cotest 01/25/2014 Mammogram 2024 SDOH Screening 02/12/2026 02/12/2025 Zoster Vaccines (1 of 2) 01/25/2034 DTaP/Tdap/Td Vaccines (2 - T d or Tdap) 12/02/2034 12/02/2024 RSV Patients and Pa tients Aged 60 years or older (1 - 1-dose 75+ series) 01/25/2059 COVID-19 Vaccine Completed 12/02/2024 Influenza Vaccine Completed 12/02/2024 HIB Vaccines Aged Out No longer eligi ble based on patient's age to complete this topic HPV Vaccines Aged Out No longer eligi ble based on patient's age to complete this topic Hepatitis A Vaccines Aged Out No long er eligible based on patient's age to complete this topic IPV Vaccines Aged Out No longer eligi ble based on patient's age to complete this topic Meningococcal Vaccine Aged Out No enid pina eligible based on patient's age to complete this topic Pneumococcal Vaccine: Pediat rics (0 to 5 Years) and At-Risk Patients (6 to 49) Years) Aged Out No longer elig ible based on patient's age to complete this topic RSV under 20 months Aged Out No longe r eligible based on patient's age to complete this topic Rotavirus Vaccines Aged Out No longer eligible based on patient's age to complete this topic Insurance [facility] PPO
== END 2025-03-05 02:48 | disposition left against medical advice (07) ==
PROVIDERS: Emergency Provider Emergency Medicine
DX: R06.02 Shortness of breath (principal); R51.9 Headache, unspecified; Z53.21 Procedure and treatment not carried out due to patient leaving prior to being seen by health care provider
CPT/HCPCS: 36415; 71045; 80053; 84484; 85025; 93005; 99281; 99283

== ENCOUNTER → 2025-03-04 20:23 | Outpatient (BNV) | payer BC, SELFPAY | PROVIDERS: Visit Provider Radiology Neuroradiology | DX: R07.9 Chest pain, unspecified (principal); R06.02 Shortness of breath | CPT/HCPCS: 71045 ==

== ENCOUNTER → 2025-03-04 20:23 | Outpatient (BNV) | payer BC, SELFPAY | PROVIDERS: Emergency Provider Emergency Medicine; Visit Provider Internal Medicine Cardiovascular Disease | DX: R07.9 Chest pain, unspecified (principal) | CPT/HCPCS: 93010 ==

== ENCOUNTER 2025-05-10 08:25 | Outpatient (REF) | payer BC, SELFPAY ==
--- NOTE | ~2025-05-10 | MM_ITS ---
EXAMINATION: MM DIAGNOSTIC DIGITAL BREAST TOMOSYNTHESIS, BILATERAL CLINICAL INFORMATION: Baseline mammogram. Left breast pain upper outer breast. COMPARISON: Mammography: Comparison is made with relevant prior exams. TECHNIQUE: Digital breast mammography with tomosynthesis is performed in both the craniocaudal and mediolateral oblique views along with computer-aided detection (CAD). FINDINGS: There are scattered areas of fibroglandular density (ACR BI-RADS breast composition Category b). [place] marker in the upper outer left breast without underlying abnormal findings. There are no significant masses, abnormal calcifications, or other abnormalities. Targeted color Doppler ultrasound scanning in the left breast in the area the patient's pain from 1-5 o'clock demonstrates normal fibronodular breast tissue. There is no sonographic abnormal finding. Results are provided to the patient at time of visit by the technologist. MM/MM tomosynthesis diagnostic BI IMPRESSION: Right: Negative. Left: No mammographic or sonographic abnormal findings to account for the patient's left breast pain. Recommend clinical evaluation follow-up. ASSESSMENT: BI-RADS BI-RADS 1 - Negative RECOMMENDATION: 1 year F/U This patient's information was entered into a reminder system with a target due date for their next mammogram. Electronically signed by: Deysi Aguilera DO 05/10/2025 09:58 AM EDT
== END 2025-05-10 08:26 | disposition home or self-care (01) ==
LOC: HO.MAMMO 08:25
PROVIDERS: PCP Student in an Organized Health Care Education/Training Program; Visit Provider Student in an Organized Health Care Education/Training Program
DX: N64.4 Mastodynia (principal)
CPT/HCPCS: 76642; 77062; 77066

== ENCOUNTER → 2025-05-10 08:30 | Outpatient (BNV) | payer BC, SELFPAY | PROVIDERS: PCP Student in an Organized Health Care Education/Training Program; Visit Provider Internal Medicine | DX: N64.4 Mastodynia (principal); R92.323 Mammographic fibroglandular density, bilateral breasts | CPT/HCPCS: 76642; 77062; 77066 ==

== ENCOUNTER 2025-07-09 11:30 | Outpatient (REF) | payer BC, SELFPAY ==
--- OUTSIDE RECORDS SUMMARY | 2025-07-09 13:05 | XMS_ITS | Clinical Summary ---
Author Organization [employer] Address [address] [facility] [address] [place] [address] Care Team Providers Care Assistant Chief Train Dispatcher Name Role Phone Sudhakar Weller VESNA Primary Care Provider [phone] Allergies No known active allergies Medications No known medications Active Problems Problem Noted Date Diagnosed Date Cervical cancer screening 07/09/2025 Assessment & Plan (07/09/2025 9:45 AM EDT): 40 y.o. here for cervical cancer screening. Will continue monitoring following ASCCP guidelines. Encounter for assessment of STD exposure 025 Encounters Date Type Department Care Team Description 07/09/2025 9:00 AM EDT Procedure Visit [facility] [address] [place] [address] Candis Nieto MD Cervical cancer screening (Primary Dx); Encounter for assessment of STD exposure 07/09/2025 Travel 07/02/2025 Travel 05/31/2025 Telephone [facility] [address] [place] [address] Jessica Costello MD No Show 05/30/2025 Telephone [facility] [address] [place] [address] Jessica Costello MD Nurse Triage 05/10/2025 Results Follow-Up [facility] [address] [place] [address] Prerna Spears CNM BI US Breast Limited Left 04/09/2025 Orders Only [facility] [address] [place] [address] Jessica Costello MD Breast mass in female (Primary Dx) 04/09/2025 Orders Only [facility] [address] [place] [address] Prerna Spears, RHIANNA Breast pain (Primary Dx) from Last 3 Months Immunizations Immunization Administration Dates Next Due Influenza, Injectable, MDCK, preservative free 0 12/02/2024 Tdap 12/02/2024 Social History Tobacco Use Types Packs/Day Years Used Date Smoking Tobacco: Never Smokeless Tobacco: Never Tobacco Cessation:Counseling Given: Not Answered Alcohol Use Standard Drinks/Week Comments Never 0 (1 standard drink = 0.6 oz pur e alcohol) Depression Answer Date Recorded Patient Health Questionnaire-9 Score 2 03/07/2025 Patient Health Questionnaire-9 Score 2 03/07/2025 Last PHQ-9: Questionnaire Data Not on file 0 03/07/2025 Housing Stability Answer Date Recorded What is [...] off services in your home? No 02/12/2025 Depression Answer Date Recorded Patient Health Questionnaire-2 Score 2 03/07/2025 Internet Access Answer Date Recorded Internet Access Q1 Yes 02/12/2025 Internet Access Q2 Not on file 02/12/2025 Comments No Sex and Gender Information Value Date Recorded Sex Assigned at Female 12/03/2024 2:14 PM EST Legal Sex Female 11:48 AM EDT Gender Identity Female 12/03/2024 2:14 PM EST Sexual Orientation Straight 12/03/2024 2: 14 PM EST Last Filed Vital Signs Vital Sign Reading Time Taken Comments Blood Pressure 114/72 07/09/2025 9:12 AM EDT Pulse 78 07/09/2025 9:12 AM EDT Temperature 36.9 C (98.4 F) 07/09/2025 9:12 AM EDT Respiratory Rate 20 07/09/2025 9:12 AM EDT Oxygen Saturation 98% 07/09/2025 9:12 AM EDT Inhaled Oxygen Concentration - - Weight 96.8 kg (213 lb 6.4 oz) 07/09/2025 9:12 A M EDT Height 162.6 cm (5' 4 ) 07/09/2025 9:12 AM EDT Body Mass Index 36.63 07/09/2025 9:12 AM EDT Plan of Treatment Health Maintenance Due Date Last Done Comments HIV Screening 1984 Alcohol/Substance Use Screening 1996 Family Planning (PISQ) 01/25/1999 HPV Vaccines (1 - 3-dose series) 01/25/1999 Hepatitis C Screening 01/25/2002 Hepatitis B Vaccines (1 of 3 - 19+ 3-dose series) 01/25/2003 Pap Smear 01/25/2005 Cervical Cancer Screening 01/25/2014 HPV/Cotest 01/25/2014 Influenza Vaccine (#1) 2025 12/02/2024 SDOH Screening 02/12/2026 02/12/2025 Depression Screening 03/07/2026 03/07/2025, 03/07/2025 Disability Screening 03/07/2026 03/07/2025 Tobacco Screening 07/09/2026 07/09/2025 Mammogram 05/10/2027 05/10/2025, 05/10/2025 Zoster Vaccines (1 of 2) 01/25/2034 DTaP/Tdap/Td Vaccines (2 - T d or Tdap) 12/02/2034 12/02/2024 RSV Patients and Patients Aged 60 years or older (1 - 1-dose 75+ series) 01/25/2059 COVID-19 Vaccine Completed 12/02/2024 HIB Vaccines Aged Out No longer eligi ble based on patient's age to complete this topic Hepatitis A Vaccines Aged Out No long er eligible based on patient's age to complete this topic IPV Vaccines Aged Out No longer eligi ble based on patient's age to complete this topic Meningococcal B Vaccine Aged Out No l onger eligible based on patient's age to complete this topic Meningococcal Vaccine Aged Out No enid pina eligible based on patient's age to complete this topic Pneumococcal Vaccine: Pediatrics (0 to 5 Years) and At-Risk Patients (6 to 49) Years Aged Out No longer eligible b ased on patient's age to complete this topic RSV under 20 months Aged Out No longe r eligible based on patient's age to complete this topic Rotavirus Vaccines Aged Out No longer eligible based on patient's age to complete this topic Procedures Procedure Name Priority Date/Time Associated Diagnosis Comments BI US BREAST LIMITED LEFT Urgent 05/10/2025 8:28 AM EDT Breast pain BI MAMMOGRAM DIAGNOSTIC TOMOSYNTHESIS BILATERAL Routine 05/10/2025 8:20 AM EDT Breast pain from Last 3 Months Results * BI US Breast Limited Left (05/10/2025 8:28 AM EDT) Anatomical Region Laterality Modality Breast Left Ultrasound 05/10/2025 8:28 AM EDT Narrative 05/10/2025 10:00 AM EDT [facility] [address] [place] [address] Ultrasound Report Signed Patient: Juhi Rueda MR#: [id number] : 1985 Acct:[id number] Age/Sex: 40 / F ADM Date: 05/10/25 Loc: HO.MAMMO Attending Dr: Jesscia Costello MD Ordering Physician: PRERNA SPEARS CNM Date of Service: 05/10/25 Procedure(s): US breast LT limited Accession Number(s): [id number] cc: Jessica Costello MD; PRERNA SPEARS CNM EXAMINATION: MM DIAGNOSTIC DIGITAL BREAST TOMOSYNTHESIS, BILATERAL CLINICAL INFORMATION: Baseline mammogram. Left breast pain upper outer breast. COMPARISON: Mammography: Comparison is made with relevant prior exams. TECHNIQUE: Digital breast mammography with tomosynthesis is performed in both the craniocaudal and mediolateral oblique views along with computer-aided detection (CAD). FINDINGS: There are scattered areas of fibroglandular density (ACR BI-RADS breast composition Category b). [place] marker in the upper outer left breast without underlying abnormal findings. There are no significant masses, abnormal calcifications, or other abnormalities. Targeted color Doppler ultrasound scanning in the left breast in the area the patient's pain from 1-5 o'clock demonstrates normal fibronodular breast tissue. There is no sonographic abnormal finding. Results are provided to the patient at time of visit by the technologist. US/US breast LT limited IMPRESSION: Right: Negative. Left: No mammographic or sonographic abnormal findings to account for the patient's left breast pain. Recommend clinical evaluation follow-up. ASSESSMENT: BI-RADS BI-RADS 1 - Negative RECOMMENDATION: 1 year F/U This patient's information was entered into a reminder system with a target due date for their next mammogram. Electronically signed by: Deysi Aguilera DO 05/10/2025 09:58 AM EDT RP Dictated By: Deysi Aguilera DO Signed By: <Electronically signed by Deysi Aguilera DO in OV> 05/10/2558 DD/ 7 TD/TT: 05/10/25923 Envelope Patternmaker: Procedure Note Donotuseinterpreter, Image - 05/10/2025 [facility] [address] [place] [address] Ultrasound Report Signed Patient: Juhi Rueda#: M [id number] : 1985Acct:[id number] Age/Sex: 40 / FADM Date: 05/10/25 Loc: HO.MAMMO Attending Dr: Jessica Costello MD Ordering Physician: PRERNA SPEARS CNM Date of Service: 05/10/25 Procedure(s): US breast LT limited Accession Number(s): [id number] cc: Jessica Costello MD; PRERNA SPEARS CNM EXAMINATION: MM DIAGNOSTIC DIGITAL BREAST TOMOSYNTHESIS, BILATERAL CLINICAL INFORMATION: Baseline mammogram. Left breast pain upper outer breast. COMPARISON: Mammography: Comparison is made with relevant prior exams. TECHNIQUE: Digital breast mammography with tomosynthesis is performed in both the craniocaudal and mediolateral oblique views along with computer-aided detection (CAD). FINDINGS: There are scattered areas of fibroglandular density (ACR BI-RADS breast composition Category b). [place] marker in the upper outer left breast without underlying abnormal findings. There are no significant masses, abnormal calcifications, or other abnormalities. Targeted color Doppler ultrasound scanning in the left breast in the area the patient's pain from 1-5 o'clock demonstrates normal fibronodular breast tissue. There is no sonographic abnormal finding. Results are provided to the patient at time of visit by the technologist. US/US breast LT limited IMPRESSION: Right: Negative. Left: No mammographic or sonographic abnormal findings to account for the patient's left breast pain. Recommend clinical evaluation follow-up. ASSESSMENT: BI-RADS BI-RADS 1 - Negative RECOMMENDATION: 1 year F/U This patient's information was entered into a reminder system with a target due date for their next mammogram. Electronically signed by: Deysi Aguilera DO 05/10/2025 09:58 AM EDT Dictated By: Deysi Aguilera DO Signed By: <Electronically signed by Deysi Aguilera DO in OV> 05/10/25 0958 DD/ 7 TD/TT: 05/10/25923 Envelope Patternmaker: us Prerna Spears CNM IMG US PROCEDURES Final R esult * BI Mammogram Diagnostic Tomosynthesis Bilateral (05/10/2025 8:20 AM EDT) Anatomical Region Laterality Modality Breast Bilateral Mammography 05/10/2025 8:20 AM EDT Narrative 05/10/2025 10:00 AM EDT [facility] [address] [place], [place] [address] Mammography Report Signed Patient: Juhi Rueda MR#: [id number] : 1985 Acct:[id number] Age/Sex: 40 / F ADM Date: 05/10/25 Loc: HO.MAMMO Attending Dr: Jessica Costello MD Ordering Physician: Jessica Costello MD Results: 1Negati ve Date of Service: 05/10/25 Follow Up: 1 Year From Orig ina Mammogram Procedure(s): MM tomosynthesis diagnostic BI Accession Number(s): [id number] cc: Jessica Costello MD EXAMINATION: MM DIAGNOSTIC DIGITAL BREAST TOMOSYNTHESIS, BILATERAL CLINICAL INFORMATION: Baseline mammogram. Left breast pain upper outer breast. COMPARISON: Mammography: Comparison is made with relevant prior exams. TECHNIQUE: Digital breast mammography with tomosynthesis is performed in both the craniocaudal and mediolateral oblique views along with computer-aided detection (CAD). FINDINGS: There are scattered areas of fibroglandular density (ACR BI-RADS breast composition Category b). [place] marker in the upper outer left breast without underlying abnormal findings. There are no significant masses, abnormal calcifications, or other abnormalities. Targeted color Doppler ultrasound scanning in the left breast in the area the patient's pain from 1-5 o'clock demonstrates normal fibronodular breast tissue. There is no sonographic abnormal finding. Results are provided to the patient at time of visit by the technologist. MM/MM tomosynthesis diagnostic BI IMPRESSION: Right: Negative. Left: No mammographic or sonographic abnormal findings to account for the patient's left breast pain. Recommend clinical evaluation follow-up. ASSESSMENT: BI-RADS BI-RADS 1 - Negative RECOMMENDATION: 1 year F/U This patient's information was entered into a reminder system with a target due date for their next mammogram. Electronically signed by: Deysi Aguilera DO 05/10/2025 09:58 AM EDT Dictated By: Deysi Aguilera DO Signed By: <Electronically signed by Deysi Aguilera DO in OV> 05/10/25 0958 DD/ 0820 TD/TT: 05/10/25 0852 Envelope Patternmaker: Procedure Note Donotuseinterpreter, Image - 05/10/2025 [facility] [address] [place] [address] [address] [place], [place] [address] Mammography Report Signed Patient: Juhi Rueda#: M [id number] : 1985Acct:[id number] Age/Sex: 40 / FADM Date: 05/10/25 Loc: HO.MAMMO Attending Dr: Jessica Costello MD Ordering Physician: Jessica Costello MDResults: 1Negati ve Date of Service: 05/10/25Follow Up: 1 Year From Orig ina Mammogram Procedure(s): MM tomosynthesis diagnostic BI Accession Number(s): [id number] cc: Jessica Costello MD EXAMINATION: MM DIAGNOSTIC DIGITAL BREAST TOMOSYNTHESIS, BILATERAL CLINICAL INFORMATION: Baseline mammogram. Left breast pain upper outer breast. COMPARISON: Mammography: Comparison is made with relevant prior exams. TECHNIQUE: Digital breast mammography with tomosynthesis is performed in both the craniocaudal and mediolateral oblique views along with computer-aided detection (CAD). FINDINGS: There are scattered areas of fibroglandular density (ACR BI-RADS breast composition Category b). [place] marker in the upper outer left breast without underlying abnormal findings. There are no significant masses, abnormal calcifications, or other abnormalities. Targeted color Doppler ultrasound scanning in the left breast in the area the patient's pain from 1-5 o'clock demonstrates normal fibronodular breast tissue. There is no sonographic abnormal finding. Results are provided to the patient at time of visit by the technologist. MM/MM tomosynthesis diagnostic BI IMPRESSION: Right: Negative. Left: No mammographic or sonographic abnormal findings to account for the patient's left breast pain. Recommend clinical evaluation follow-up. ASSESSMENT: BI-RADS BI-RADS 1 - Negative RECOMMENDATION: 1 year F/U This patient's information was entered into a reminder system with a target due date for their next mammogram. Electronically signed by: Deysi Aguilera DO 05/10/2025 09:58 AM EDT Dictated By: Deysi Aguilera DO Signed By: <Electronically signed by Deysi Aguilera DO in OV> 05/10/25 0958 DD/ 0820 TD/TT: 05/10/25 0852 Envelope Patternmaker: Jessica Costello MD IMG BI PROCEDURES Final Result from Last 3 Months Insurance [facility] PPO [facility] PPO Care Teams Assistant Chief Train Dispatcher Relationship Specialty Start Date End Date Sudhakar Weller CNP [address] [place] [phone] PCP - General Family Medicine 06/27/25
[2025-07-10 08:25] LABS: Syphilis Screen Nonreactive (Nonreactive)
[2025-07-10 08:54] LABS: HBS Num1 31.32 mIU/mL (0-7.99); HBc Num1 0.12 S/CO (0.00-0.79); HBsAGNum1 0.44 S/CO (0.00-0.99); HIV Num 1 0.08 S/CO (0.00-0.99); Hepatitis B Surface Antigen Negative (Negative); ~HepC Num1 0.18 S/CO (0.00-0.79); ~Hepatitis B Surface Antibody REACTIVE (Nonreactive); ~Hepatitis C Antibody Nonreactive (Nonreactive)
[2025-07-11 17:49] LABS: C. trachomatis RNA TMA NOT DETECTED (NOT DETECTED); N. gonorrhoeae RNA TMA NOT DETECTED (NOT DETECTED)
[2025-07-11 20:04] LABS: Trichomonas (NAAT) NOT DETECTED (NOT DETECTED)
== END 2025-07-09 11:31 | disposition home or self-care (01) ==
LOC: HO.CHCLDS 11:30
PROVIDERS: Visit Provider Family Medicine
DX: Z12.4 Encounter for screening for malignant neoplasm of cervix (principal); Z20.2 Contact with and (suspected) exposure to infections with a predominantly sexual mode of transmission
CPT/HCPCS: 36415; 86704; 86706; 86780; 86803; 87340; 87389; 87491; 87591; 87626; 87661; 88175